=== PATIENT | female | born 1970 | race Hispanic/Latino ===

== ENCOUNTER 2017-11-27 12:27 | Outpatient (CLI) | payer OTHER ==
--- NOTE | 2017-11-27 17:46 | MRI ---
MRI LEFT SHOULDER: Date: 11-27-17 Provided Clinical History: Left shoulder pain. FINDINGS: There is full thickness partial width tearing involving the cranial fibers of the subscapularis tendo n with mild retraction. There is low grade partial thickness undersurface tearing suspected involving the anterior distal supraspinatus tendon at the footplate. Infraspinatus and tares minor tendons [place] ear intact. Rotator cuff muscular volume appears preserved. Long head biceps tendon appears intact and normally located. There is a moderate glenohumeral joint e ffusion. There is signal abnormality in the region of the superior labrum and that may reflect SLAP t ear. The glenoid labrum and glenohumeral articular cartilage appear otherwise unremarkable. Acromioclavicular joint osteoarthrosis is noted with no significant mass effect upon the subjacent simmons praspinatus. There is lateral downsloping of the acromion. No focal concerning regional marrow or mus cular signal abnormality. IMPRESSION: 1. Full thickness partial width retracted tear involving cranial fibers of the subscapularis tendon. 2. Low grade partial thickness undersurface tearing involving anterior distal supraspinatus tendon at the footplate. 3. Possible SLAP tear. 4. Acromioclavicular joint osteoarthrosis and lateral downsloping of the acromion. 5. Moderate glenohumeral joint effusion. POS: SONY
== END 2017-11-27 12:28 | disposition home or self-care (01) ==
LOC: SCSMRI 12:27
PROVIDERS: ATTEND Orthopaedic Surgery
DX: M25.512 Pain in left shoulder (principal); M75.112 Incomplete rotator cuff tear or rupture of left shoulder, not specified as traumatic; M19.012 Primary osteoarthritis, left shoulder; M25.412 Effusion, left shoulder

== ENCOUNTER 2018-03-31 02:57 | Outpatient (CLI) | payer OTHER ==
[2018-03-31 14:52] LABS: Hemoglobin 14.2 g/dL (12.0-16.0); Mean Corpuscular HGB CONC 33.8 g/dL (32.0-36.0); Mean Corpuscular Hemoglobin 32.4 pg (27.0-31.0); Mean Corpuscular Volume 95.9 fL (78.0-98.0); Mean Platelet Volume 8.5 fL (7.4-10.4); Platelet Count 218 thou/uL (130-400); RBC Distribution Width 12.5 % (11.5-14.5); Red Blood Cell (RBC) Count 4.37 mill/uL (4.20-5.40); White Blood Cell (WBC) Count 8.1 thou/uL (4.8-10.8)
== END 2018-03-31 02:58 | disposition home or self-care (01) ==
LOC: LABBT 02:57
PROVIDERS: ATTEND Orthopaedic Surgery
DX: Z01.812 Encounter for preprocedural laboratory examination (principal); M75.102 Unspecified rotator cuff tear or rupture of left shoulder, not specified as traumatic
CPT/HCPCS: 85027

== ENCOUNTER 2018-04-02 08:14 | Day surgery (SDC) | payer OTHER ==
[2018-03-31 14:05] VITALS: BMI 43.9
[2018-04-02] MEDS ORDERED: Fentanyl 100 MCG/2 ML VIAL ONE ×3 (08:22→09:06)
[2018-04-02] MEDS ORDERED: Midazolam HCl 2 mg/2 ml Vial ONE ×2 (08:22→08:40)
[2018-04-02] MEDS ORDERED: Lidocaine 1% (PF) 30 ML VIAL ONE (08:40)
[2018-04-02] MEDS ORDERED: Zolpidem Tartrate 5 MG TAB PO PRN (09:13)
[2018-04-02] MEDS ORDERED: Ropivacaine 0.2% 550 ML 550 ML NERVE BLCK SCH (09:13)
[2018-04-02] MEDS ORDERED: Promethazine HCl 25 MG/ML VIAL IM PRN (09:13)
[2018-04-02] MEDS ORDERED: traMADol HCl 50 MG TAB PO PRN ×2 (09:13)
[2018-04-02] MEDS ORDERED: Ondansetron PF 4 MG/2 ML Vial IVP PRN (09:13)
[2018-04-02] MEDS ORDERED: HYDROcodone/Acetaminophen 5/325 mg Tablet PO PRN ×2 (09:13)
[2018-04-02] MEDS ORDERED: CEFAZOLIN 2 GM/50 ML BAG ONE (09:18)
[2018-04-02] MEDS ORDERED: Ropivacaine 0.5% HCl/PF (150 MG/30 ML VIAL) ONE (12:07)
[2018-04-02] MEDS ORDERED: Ropivacaine 0.2% HCl/PF (40 MG/20 ML VIAL) ONE (12:07)
[2018-04-02] MEDS ORDERED: ePHEDrine 50 MG/ML VIAL ONE (13:24)
[2018-04-02] MEDS ORDERED: PHENYLEPHRINE-NS 100 MCG/ML 10 ML SYRINGE ONE (13:24)
[2018-04-02] MEDS ORDERED: Glycopyrrolate 0.2 MG/ML 5 ML SYRINGE ONE (13:24)
[2018-04-02] MEDS ORDERED: PROPOFOL 200 MG/20 ML VIAL ONE (13:24)
[2018-04-02] MEDS ORDERED: Rocuronium Bromide 10 MG/ML (10ML VIAL) ONE (13:24)
[2018-04-02] MEDS ORDERED: Lidocaine 1% PF 5 ML VIAL ONE (13:24)
[2018-04-02] MEDS ORDERED: Ondansetron PF 4 MG/2 ML Vial ONE (13:24)
--- NOTE | 2018-04-03 04:08 | OP ---
DATE OF PROCEDURE: 04/02/2018 PREOPERATIVE DIAGNOSES: 1. Left partial thickness tear, supraspinatus. 2. Left full-thickness tear, subscapularis. 3. Possible degenerative superior labrum anterior and posterior tear. POSTOPERATIVE DIAGNOSES: 1. Leading edge subscapularis tear, 10%, full-thickness hole with full-thickness tear through interval. 2. Biceps tendinopathy. 3. Partial-thickness supraspinatus tear. PROCEDURES PERFORMED: 1. Open left rotator cuff repair. 2. Open biceps tenodesis. LVN LPN: Tino Perales PA-C. ANESTHESIA: The patient received general endotracheal intubation with interscalene block. ESTIMATED BLOOD LOSS: 75 mL. TOURNIQUET TIME: None. IMPLANTS: An Arthrex 5.5 metal double loaded corkscrew and a 5.5 [employer]posite SwiveLock. ANTIBIOTICS: Ancef 2 g. COMPLICATIONS: None. HISTORY OF PRESENT ILLNESS: Ms. 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 The patient had MRI evidence of a high-grade tear of the subscapularis on MRI as well as a partial-thickness tear of the supraspinatus and degenerative labral changes. The patient failed conservative management with therapy, anti-inflammatories, bracing. I discussed with the patient the risks and benefits of an open subscapularis repair with biceps tenodesis and rotator cuff repair as needed. I discussed the risks and benefits of surgery, pain, scar, bleeding, infection, damage to vital structures, decreased range of motion and strength, continued pain despite surgical intervention. The patient understood risks and benefits of the procedure and elected to proceed. Time-out was performed designating the patient's left upper extremity as the operative site, based on site, consents, and marking. After time-out, the patient's left deltopectoral interval was approached down through skin, fat, controlled from the cephalic vein, took the deltoid laterally, came down and found the pectoralis cut about 6 mm of the leading edge of the pectoralis to help with our exposure. We placed a Cobell retractor in between the conjoined and the deltoid and looked down on the shoulder. Visualized the shoulder and could only find a leading edge superior full-thickness tear of the subscapularis, there is a hole in the interval; came down into the biceps groove, came down and evaluated the biceps, came up into the undersurface of the subscapularis tear, created a footprint on the lesser for placement of my anchor. I placed a 5/5 corkscrew and passed 4 passes through the leading edge of the subscapularis tear, sewed this, tied it and put them as a double row into the 5/5 corkscrew in the bicipital groove. I took the sutures, 3 limbs of this to tenodese my biceps down and then sewed over the top of the capsule as well as superiorly. I closed the rotator interval on the hole that was noted when I came in and closed down the partial-thickness tear with #1 Vicryl to completely seal up the shoulder. I then washed. I closed the rotator interval with 1 Vicryl, closed the subcu with 2-0 and francisco. The patient will be placed in a sling. She will be elbow, wrist and hand motion until I see her back in 2 weeks in followup of her at that time. The patient will be sent with p.o. pain medications. Job ID: [id number] MTDD
== END 2018-04-02 13:15 | disposition home or self-care (01) ==
LOC: SDC 08:14
PROVIDERS: ATTEND Orthopaedic Surgery
PROC: 0LQ20ZZ Repair Left Shoulder Tendon, Open Approach (ICD-10-PCS; principal; 2018-04-02)
PROC: 0LS40ZZ Reposition Left Upper Arm Tendon, Open Approach (ICD-10-PCS; principal; 2018-04-02)
DX: M75.121 Complete rotator cuff tear or rupture of right shoulder, not specified as traumatic (principal); M75.21 Bicipital tendinitis, right shoulder
CPT/HCPCS: A4306; C1713; J2001; J2250; J2405; J2704; J2795; J3010; J3490

== ENCOUNTER → 2018-04-03 | Day surgery (SDC) | payer OTHER ==
[~2018-04-03] MED LIST: Ropivacaine 0.2% HCl/PF 20 ML ONE; Ropivacaine 0.5% HCl/PF (150 MG/30 ML VIAL) ONE
== END ==
LOC: SDC/OP 10:18
PROVIDERS: ATTEND Anesthesiology
PROC: 3E0T3BZ Introduction of Anesthetic Agent into Peripheral Nerves and Plexi, Percutaneous Approach (ICD-10-PCS; principal; 2018-04-03)
DX: M25.512 Pain in left shoulder (principal)
CPT/HCPCS: J2795

== ENCOUNTER 2018-11-10 14:20 | Outpatient (CLI) | payer OTHER ==
--- NOTE | 2018-11-10 15:03 | RAD ---
XR Knee Lt 3 View HISTORY: Injury, left knee pain FINDINGS: No fracture or dislocation is identified. Mild degenerative changes are present.
== END 2018-11-10 14:21 | disposition home or self-care (01) ==
LOC: SCSRAD 14:20
PROVIDERS: ATTEND Nurse Practitioner Family
DX: S89.92XA Unspecified injury of left lower leg, initial encounter (principal); M17.12 Unilateral primary osteoarthritis, left knee

== ENCOUNTER 2019-01-20 10:18 | Outpatient (CLI) | payer OTHER ==
--- NOTE | 2019-01-20 11:00 | RAD ---
EXAM: 3 views of the right shoulder HISTORY: Shoulder pain COMPARISON: None FINDINGS: There is no evidence of acute fracture or dislocation. No degenerative changes are seen. Th e visualized thorax is unremarkable. IMPRESSION: No evidence of acute osseous abnormality.
--- NOTE | 2019-01-20 11:38 | RAD ---
LEFT ANKLE THREE VIEWS: INDICATIONS: Left ankle pain. COMPARISON: None. FINDINGS: There is enthesopathic change off the posterior and plantar calcaneus. There is soft tissue swelling surrounding the left ankle. IMPRESSION: No acute osseous abnormality. POS: TPC
== END 2019-01-20 10:19 | disposition home or self-care (01) ==
LOC: SCSRAD 10:18
PROVIDERS: ATTEND Nurse Practitioner Family
DX: S49.91XA Unspecified injury of right shoulder and upper arm, initial encounter (principal); S99.912A Unspecified injury of left ankle, initial encounter

== ENCOUNTER 2019-11-16 06:57 | Outpatient (CLI) | payer OTHER ==
--- NOTE | 2019-11-16 07:37 | ULT ---
Hepatic sonogram with duplex evaluation HISTORY: Right upper quadrant pain. Abnormal liver function tests. Findings gallbladder has a normal appearance. No evidence of stones. Common duct is 0.7 cm diameter. Liver is mostly echogenic. Areas of focal fatty sparing near the gallbladder fossa. No masses. No clara e fluid. Spleen measures up to 9.9 cm. Good color and spectral Doppler flow within the hepatic and splenic arteries. Portal venous flow is t owards the liver. Hepatic venous flow is towards the IVC. IMPRESSION : Hepato-steatosis. No findings of portal venous hypertension. No evidence of gallstones or biliary obstruction
== END 2019-11-16 06:58 | disposition home or self-care (01) ==
LOC: BICULT 06:57
PROVIDERS: ATTEND Internal Medicine Gastroenterology
DX: K21.9 Gastro-esophageal reflux disease without esophagitis (principal); R94.5 Abnormal results of liver function studies; R13.19 Other dysphagia; K92.1 Melena; K76.0 Fatty (change of) liver, not elsewhere classified
CPT/HCPCS: 76705

== ENCOUNTER 2020-03-08 15:09 | Outpatient (CLI) | payer OTHER ==
--- NOTE | 2020-03-08 16:45 | MRI ---
MRI Lower Ext Jt Lt WO Con History: Pain Comparison: None. Findings: Medial meniscus: Complex tear medial meniscal posterior horn with a high-grade near complete radial t ear at the root as well as displaced undersurface flap tear of the posterior horn within the medial gutter. The medial disc bodies displaced 5 mm the gutter itself. Lateral meniscus: Intact Extremely thin attenuated likely chronically torn ACL. PCL is intact. MCL and LCL are intact. Extensor mechanism: Quadriceps tendon, patella and patellar tendon are intact. Mild trochlea dysplasi a. Tibial tuberosity trochlear groove distance measures 2.2 cm. Cartilage: Patellofemoral compartment: Multifocal 50% chondral fissures medial trochlea. Medial compartment: High grade volume loss, 50-75%, throughout the weightbearing surface medial femor al condyle medial tibial plateau with a 6 mm in transverse by 1.6 cm in AP dimension full-thickness chondral defect lateral weightbearing surface medial femoral condyle. Lateral compartment: Low-grade chondral fraying. Bones: Large medial femoral condyle osteophyte formation as well as medial tibial rim osteophyte. No acute fracture. Soft tissues: Normal voiding joint fluid. No significant popliteal cyst. Small 3 to 4 mm ovoid bodies deep to the posterior deep MCL. Muscles: Muscle signal and bulk is normal. Impression: 1. Complex tear medial meniscus with a high-grade radial tear at the root with 5 mm gutter extrusion medial meniscal body as well as a displaced flap tear posterior horn flipped within the medial gutter. 2. 6 mm x 1.6 cm full-thickness chondral defect lateral weightbearing surface medial femoral condyle with grade 2/3 chondromalacia throughout the medial compartment. 3. 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 4. Free bodies within the joint deep to the posterior MCL abutting the medial cortex medial femoral c ondyle. 5. No normal ACL fibers are appreciated with a few wisps of scar tissue remaining.
== END 2020-03-08 15:10 | disposition home or self-care (01) ==
LOC: BICMRI 15:09
PROVIDERS: ATTEND Nurse Practitioner Family
DX: S89.92XA Unspecified injury of left lower leg, initial encounter (principal); M21.869 Other specified acquired deformities of unspecified lower leg; M94.262 Chondromalacia, left knee; S83.232A Complex tear of medial meniscus, current injury, left knee, initial encounter; S83.242A Other tear of medial meniscus, current injury, left knee, initial encounter; L90.5 Scar conditions and fibrosis of skin

== ENCOUNTER 2021-07-26 07:46 | Outpatient (CLI) | payer BC | END 2021-07-26 07:47 | disposition home or self-care (01) | LOC: BICMAMMO 07:46 | PROVIDERS: ATTEND Nurse Practitioner Family | DX: Z12.31 Encounter for screening mammogram for malignant neoplasm of breast (principal) | CPT/HCPCS: 77063; 77067 ==